=== PATIENT | female | born 1980 | race Caucasian/White ===

== ENCOUNTER → 2023-01-19 | Emergency (ER) | payer BC ==
[~2023-01-19] VITALS: Ht 157.5 cm; Wt 62.1 kg
[~2023-01-19] MED LIST: DIAZEPAM 5 MG TABLET ONE; DIAZEPAM 5 MG TABLET PO ONE; KETOROLAC TROMETHAMINE INJ 60 MG/2 ML VIAL IM ONE
--- NOTE | 2023-01-19 05:25 | NUR ---
BIBRA [id number] FROM HOME FOR C/O LOW BACK PAIN RADIATING TO THE ANTERIOR RIGHT THIGH. HAD A RECENT MRI WITH HERNIATION. PT A/OX4. TOLERATING R/A WELL WITH NO RESP DISTRESS. CONNECTED PT TO POX AND MONITOR. SAFETY MEASURES IN PLACE.
[2023-01-19 07:30] VITALS: BP 121/71
== END | disposition home or self-care (01) ==
LOC: ER 05:27
DX: M54.41 Lumbago with sciatica, right side (principal); Z60.2 Problems related to living alone
CPT/HCPCS: 99283; 96372; J1885